=== PATIENT | male | born 1995 | race Caucasian/White ===

== ENCOUNTER 2020-05-08 21:10 | Emergency (ER) | payer SELFPAY ==
[~2020-05-08] VITALS: Ht 180.3 cm; Wt 69.0 kg
[2020-05-08 21:11] VITALS: BP 135/81
--- NOTE | 2020-05-08 22:07 | NUR ---
RECEIVED REPORT FROM [facility] STRONG. ERP AT BEDSIDE WITH PT. NO ACUTE SIGNS OF DISTRESS, RESPIRATIONS EVEN AND UNLABORED.
--- NOTE | 2020-05-08 22:07 | NUR ---
ERP AT TO GLUE PT'S R HAND WOUND.
== END 2020-05-08 22:24 ==
LOC: ED 22:00
DX: S60.221A Contusion of right hand, initial encounter (principal); S61.304A Unspecified open wound of right ring finger with damage to nail, initial encounter; X58.XXXA Exposure to other specified factors, initial encounter; Y93.89 Activity, other specified; Y92.89 Other specified places as the place of occurrence of the external cause; Y99.8 Other external cause status
CPT/HCPCS: 12001; 99283